=== PATIENT | female | born 1950 | race Caucasian/White ===

== ENCOUNTER → 2017-06-27 | Outpatient (CLI) | payer OTHER ==
[~2017-06-27] MED LIST: ALVESCO6.1; ALVESCO6.1 INH; AMOXICILLIN/POTASSIU PO; ATENOLOL 50MG T50 M1 PO; BACTRIM DS TAB1 EACH PO; CEFUROXIME250 MG PO; CLARITIN10 MG PO; CRESTOR10 MG PO; DALIRESP500 MCG PO; FLONASE 0.05%50 MCG; IMDUR 30 MG TAB30 M1 PO; LASIX 40 MG TAB40 M1 PO; LEVSIN; LISINOPRIL5 MG PO; NADOLOL 20 MG T20 MG PO; NITROSTAT0.4 MG SL; PREDNISONE 20 M20 M1 PO; PRILOSEC 20 MG20 MG PO; SPIRIVA INH; VITAMIN D 5050000 I1 PO; VYTORIN PO; XOPENEX HF1 UDINHALE IH; XOPENEX0.63 MG/3 IH; ZESTRIL5 MG PO; ZETIA10 MG PO; ZYRTEC10 MG PO
== END ==
LOC: CAT 05:48
DX: J43.8 Other emphysema (principal); J90 Pleural effusion, not elsewhere classified; I70.0 Atherosclerosis of aorta; J98.4 Other disorders of lung; J92.9 Pleural plaque without asbestos

== ENCOUNTER → 2017-08-04 | Outpatient (CLI) | payer OTHER ==
[~2017-08-04] MED LIST changes: +ASPIRIN81 M2 PO; +CEFUROXIME500 MG PO; -FLONASE 0.05%50 MCG; +FLONASE 0.05%50 MCG NASAL; +INCRUSE ELLI62.5 MCG INH; +LIPITOR 20 MG T20 M1 PO; +PREDNISONE 10 M10 MG PO; +QVAR8.7 G1 INH; +VOLTAREN GEL 1100 G1 TOP
== END ==
LOC: RAD 12:55
DX: J98.11 Atelectasis (principal)

== ENCOUNTER → 2017-10-01 | Outpatient (CLI) | payer OTHER | LOC: CAT 12:52 | DX: R91.8 Other nonspecific abnormal finding of lung field (principal); J44.1 Chronic obstructive pulmonary disease with (acute) exacerbation ==